=== PATIENT | male | born 2005 | race Caucasian/White ===

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

== ENCOUNTER 2024-05-12 12:22 | Outpatient (AMB) | payer BC, SELFPAY ==
--- NOTE | 2024-05-12 12:24 | MHC.PC.OV ---
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 Intake Note: pt is here for creative services director to est care, came from [facility] Dr[facility] And Reamer Required: No Allergies No Known Allergies Allergy (Verified 05/12/24 12:25) Tobacco use date assessed: 05/12/24 Dental Screening Dental Screen Date: 05/12/24 Did you have a dental visit in the last 12 months?: Yes Did you have a dental problem in the last 6 months where you did not have access to dental care?: No Was dental information given to patient?: Patient has dentist HPI 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 Will order labs. 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 1. Little interest or pleasure in doing things: not at all 2. Feeling down, depressed, or hopeless: not at all 3. Trouble falling or staying asleep, or sleeping too much: several days 4. Feeling tired or having little energy: several days 5. Poor appetite or overeating: not at all 6. Feeling bad about yourself - or that you are a failure or have let yourself or your family down: several days 7. Trouble concentrating on things, such as reading the newspaper or watching television: not at all 8. Moving or speaking so slowly that other people could have noticed. Or the opposite - being so fidgety or restless that you have been moving around a lot more than usual: not at all 9. Thoughts that you would be better off or of hurting yourself in some way: not at all Total score: 3 Depression Screening Interpretation: Negative Depression Screening Done: Yes 02239 - PHQ-9 Billing: Yes Source: Developed by Drs. Frankie Esparaz, Sarah Guzmán, Vincent Farias and colleagues, with an educational torrey from [employer]. Thrive Questionnaire Date Thrive assessed: 05/12/24 I am a: Patient What is your living situation today?: I have a place to live, but I am worried about losing it in the future Within the past 12 months, did the food you bought not last and you didn't have the money to get more?: Never true Within the past 12 months, did you worry whether your food would run out before you got money to buy more?: Sometimes True Do you have trouble paying for medicines?: No Do you have trouble getting transportation to medical appointments?: No Do you have trouble paying your heating and electricity bill?: No Do you have trouble taking care of your child, family member or friend?: No Do you have trouble with day-to-day activities such as bathing, preparing meals, shopping, managing finances, etc.?: No Are you currently unemployed and looking for a job?: Yes Are you interested in more education?: Yes Please select the resources that you would like help with: Utilities and Job search/training Currently or been in a relationship where the following occur: No concerns reported THRIVE Score: 2 AUDIT C Alcohol Use Questionnaire (AUDIT-C) 1. How often do you have a drink containing alcohol?: Monthly or less 2. How many drinks containing alcohol do you have on a typical day when you are drinking?: 1 or 2 3. How often do you have six or more drinks on one occasion?: Never Total Score: 1 Score Reviewed/Action Taken: Yes CIRILO-7 AMB Questionnaire CIRILO-7 Date CIRILO - 7 assessed: 05/12/24 Feeling nervous, anxious, or on edge: 0 = Not at all Not being able to stop or control worryin = Several days Worrying too much about different things: 1 = Several days Trouble relaxin = Not at all Being so restless that it is hard to sit still: 2 = More than half the days Becoming easily annoyed or irritable: 0 = Not at all Feeling afraid as if something awful might happen: 0 = Not at all Total CIRILO-7 score (0-4 normal; 5-9 mild; 10-14 moderate; 15-21 severe): 4 Source: Developed by Drs. Frankie Esparza, Sarah Guzmán, Vincent Farias and colleagues, with an educational torrey from [employer]. CIRILO-7 Assessment Billing CIRILO-7 Assessment Tool: CIRILO-7 Assessment 77944 Review of Systems Const Denies chills and Denies fever(s) Eyes Denies blurry vision ENT Denies vertigo, Denies dizziness and Denies sore throat Card Denies chest pain at rest, Denies chest pain with activity, Denies diaphoresis, Denies dyspnea and Denies dyspnea on exertion Resp Denies cough, Denies dyspnea, Denies dyspnea on exertion and Denies wheezing GI Denies abdominal pain, Denies melena, Denies hematochezia, Denies constipation, Denies diarrhea and Denies loose stools Denies hematuria Musc Denies numbness and Denies tingling Skin/Breast Denies lesions Neuro Denies vertigo, Denies dizziness, Denies numbness and Denies tingling Psych Denies anxiety, Denies depression, Denies homicidal ideation, Denies suicidal ideation and Denies other (substance abuse) Aller/Immun Denies wheezing Physical exam (Primary Care) Vital Signs: Last Vital Signs Pulse 73 05/12/24 12:28 BP 118/70 05/12/24 12:28 Pulse Ox 99 05/12/24 12:28 BMI result Body Mass Index 17.5 Tobacco/Smoking Status: Tobacco use Status Tobacco use date assessed 05/12/24 05/12/24 12:27 Patient Tobacco Use Status Never used Tobacco 05/12/24 12:27 e-Cigarette/Vaping Use Never Used 05/12/24 12:27 PHQ-9: PHQ-9 Score PHQ-9: Total score 3 05/12/24 12:49 Depression Screening Interpretation: Negative Thrive Assessment: Date of Thrive Assessment Date Thrive assessed 05/12/24 05/12/24 12:27 Currently or been in a relationship where the following occur: No concerns reported Const General: cooperative Nutritional Appearance: well nourished Orientation/consciousness: patient oriented x3 HENMT Head: Yes normal to inspection, Yes normocephalic and Yes atraumatic Ears: TM's normal bilaterally Eyes General: appearance normal, both eyes and all related structures Alignment and Position: alignment normal and position normal Neck Neck: Yes normal visual inspection, Yes no lymphadenopathy and Yes supple Resp Effort & Inspection: normal respiratory effort Auscultation: clear to auscultation bilaterally Cardio Rate: regular rate Rhythm: regular rhythm Heart sounds: S1 normal heart sound present, S2 normal heart sound present and no murmurs GI Palpation (GI): Soft to palpation and nontender Auscultation: normal bowel sounds Male General Exam: Yes normal external exam Penis: normal penis Scrotum: scrotum normal, testes descended bilaterally and no inguinal hernias Testes: no testicular mass Skin Rashes: no rashes Neuro General: patient oriented x3, moves all extremities, no focal motor deficits and deep tendon reflexes 2+ bilaterally Romberg Test: Negative Psych Appearance: grossly normal Mental Status: mental status grossly normal Speech and movement: Normal speech and movement present Affect: normal affect Attitude: cooperative Thought process: Normal thought process present Thought content: Normal thought content present Insight: Good insight present (Psych) Judgement: Good judgement present (Psych) Coding Level of Care Code New Pt Prev Care 18-39yr(95489 Diagnoses Physical exam Z00.00 Additional Codes CIRILO-7 Assessment Billing - CIRILO-7 Assessment Tool: CIRILO-7 Assessment 06752 ([id number]) PHQ-9 - 81674 - PHQ-9 Billing: Yes ([id number]) Assessment & Plan Assessment & Plan (1) Physical exam: Code(s): Z00.00 - Encounter for general adult medical examination without abnormal findings Category: Medical Plan: labs ordered Plan The patient agreed to the use of a medical services coordinator for this encounter. Scribed for JAYLEEN Demarco by barron Bryant scribe, on 05/12/2024 at 12:50 EST.
[2024-05-12 12:28] VITALS: BP 118/70; PULSE 73; O2SAT 99; BMI 17.5
== END 2024-05-12 13:01 | disposition home or self-care (01) ==
PROVIDERS: PCP Nurse Practitioner Family; Visit Provider Nurse Practitioner Family
DX: Z00.00 Encounter for general adult medical examination without abnormal findings (principal)

== ENCOUNTER → 2024-05-12 12:22 | Outpatient (BNVA) | payer BC, SELFPAY | PROVIDERS: Visit Provider Nurse Practitioner Family | DX: Z00.00 Encounter for general adult medical examination without abnormal findings (principal) | CPT/HCPCS: 96127 ==

== ENCOUNTER 2025-05-25 08:00 | Outpatient (AMB) | payer OTHER, SELFPAY ==
--- NOTE | 2025-05-25 08:06 | A.OFFPC_ITS ---
Vital Signs 05/25/25 08:07 Weight 174 lb BP 110/62 Blood Pressure Location Lt brachial Position Sitting Pulse 77 Temp 98.4 F Pulse Oximetry (%) 97 Oxygen Delivery Method Room Air Intake Visit Reasons: Annual PE Therapist'S Assistant Required: No Allergies No Known Allergies Allergy (Verified 05/12/24 12:25) Medication List - Last Reconciled 05/25/25 by JAYLEEN Verde No Known Home Meds Tobacco use date assessed: 05/25/25 Dental Screening Dental Screen Date: 05/25/25 Did you have a dental visit in the last 12 months?: No Did you have a dental problem in the last 6 months where you did not have access to dental care?: No Was dental information given to patient?: Patient declined HPI Annual PE HPI Details History of Present Illness The patient is a 19 year old individual presenting for a physical examination. The patient denies chest pain, shortness of breath, abdominal pain, blood in stool, constipation, and diarrhea. Health Maintenance - The patient was encouraged to undergo fasting lab work in the near future. - A follow-up physical examination in on e year was recommended. Social History Review of Systems - Cardiovascular: Denies chest pain. - Respiratory: Denies shortness of breat h. - Gastrointestinal: Denies abdominal tha n, blood in stool, constipation, or diarrhea. - Denies any si or hi Physical Exam General: Cooperative, healthy appearing, comfortable, no acute distress and well developed Orientation: Patient oriented x3 Limitations: No limitations Head: Normal to inspection Ears: Cerumen noted, unable to see TMs initially. After lavage, TMs were easily seen. Nose: Normal external nose present Face and sinus: Normal facial exam Eyes: Appearance normal, both eyes and all related structures Neck: Normal visual inspection and Yes full ROM Respiratory: Normal respiratory effort and able to speak in complete sentences. Clear to auscultation bilaterally Cardiovascular: Regular rate and rhythm. Normal S1 and S2 GI: Normal to inspection. Soft to palpation and nontender : testicles without masses/lesions and no hernias appreciated Skin: No rashes or lesions noted Neuro: Patient oriented x3 Extremities: Normal to inspection Results Plan 1. Cerumen Impaction, Bilateral On examination, the patient was found to have bilateral cerumen impaction, which obscured the tympanic membranes. Lavage was performed, after which the tympanic membranes were easily visualized. 2. Encounter For General Adult Medical E xamination The patient was encouraged to undergo fasting lab work in the near future. A follow-up appointment for an annual physical examination is recommended in one year. Discussion Notes I encouraged the patient to have fasting labs drawn in the near future and to return for a follow-up physical exam in one year. Patient Instructions - Get fasting lab work done in the near future. - Schedule a follow-up visit for a physi wilson exam in one year. 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 [employer] Current occupational exposures/hazards: No Cognitive needs: No Hearing needs: No Vision needs: Yes Questionnaire Thrive Questionnaire Date Thrive assessed: 05/12/24 I am a: Patient What is your living situation today?: I have a place to live, but I am worried about losing it in the future Within the past 12 months, did the food you bought not last and you didn't have the money to get more?: Never true Within the past 12 months, did you worry whether your food would run out before you got money to buy more?: Sometimes True Do you have trouble paying for medicines?: No Do you have trouble getting transportation to medical appointments?: Yes Do you have trouble paying your heating and electricity bill?: No Do you have trouble taking care of your child, family member or friend?: No Do you have trouble with day-to-day activities such as bathing, preparing meals, shopping, managing finances, etc.?: Yes Are you currently unemployed and looking for a job?: Yes Are you interested in more education?: Yes Please select the resources that you would like help with: Food, Transportation, Job search/training and Education Currently or been in a relationship where the following occur: No concerns reported THRIVE Score: 3 AUDIT C Alcohol Use Questionnaire (AUDIT-C) 1. How often do you have a drink containing alcohol?: Monthly or less 2. How many drinks containing alcohol do you have on a typical day when you are drinking?: 1 or 2 3. How often do you have six or more drinks on one occasion?: Never Total Score: 1 CIRILO-7 AMB Questionnaire CIRILO-7 Date CIRILO - 7 assessed: 05/12/24 Feeling nervous, anxious, or on edge: 0 = Not at all Not being able to stop or control worryin = Not at all Worrying too much about different things: 1 = Several days Trouble relaxin = Several days Being so restless that it is hard to sit still: 1 = Several days Becoming easily annoyed or irritable: 1 = Several days Feeling afraid as if something awful might happen: 0 = Not at all Total CIRILO-7 score (0-4 normal; 5-9 mild; 10-14 moderate; 15-21 severe): 4 Source: Developed by Drs. Frankie Esparza, Sarah Guzmán, Vincent Farias and colleagues, with an educational torrey from [employer]. Physical exam (Primary Care) Vital Signs: Last Vital Signs Temp 98.4 F 05/25/25 08:07 Pulse 77 05/25/25 08:07 BP 110/62 05/25/25 08:07 Pulse Ox 97 05/25/25 08:07 Oxygen Delivery Method Room Air 05/25/25 08:07 Tobacco/Smoking Status: Tobacco use Status Tobacco use date assessed 05/25/25 05/25/25 08:10 Patient Tobacco Use Status Never used Tobacco 05/25/25 08:10 e-Cigarette/Vaping Use Never Used 05/25/25 08:10 Thrive Assessment: Date of Thrive Assessment Date Thrive assessed 05/12/24 05/25/25 08:10 Currently or been in a relationship where the following occur: No concerns reported Office Procedures Cerumen Removal From which ear canal was the cerumen removed: bilateral Removal: irrigation Notes: patient tolerated procedure well, no complications and ear canal clear 95212-Lgr Irrigation/Lavage Flu Questionnaire Does the patient have a severe egg allergy?: No Does the patient have severe life threatening allergies?: No Does the patient have a fever or illness today?: No Has the patient ever had Guillain-Philippi Syndrome?: No Has the patient ever had any past reaction to a flu shot?: No Immunizations Fluarix 9826-0862 (PF) 45 mcg (15 mcg x 3)/0.5 mL IM syringe Performing Provider: JAYLEEN Verde Performing Location[place] [facility] [place] [facility] Administered by: Laya Boo MA on 05/25/25 08:54 Dose Route Admin Location Dispensed Lot Number Expiration Date NDC Geographic Area Intelligence Officer 0.5 mL IM Left Deltoid 0.5 mL [id number] 12/28/25 [id number] GLAXRent Here VIS Given Date VIS Provided VIS Publication Date 05/25/25 Single Vaccine 24 Eligibility Eligibility Date Funding Source Not [facility] Eligible 05/25/25 Private Coding Level of Care Code Est Pt Level 3 (28684) Est Pt Prev Care 18-39y(35328) Diagnoses Physical exam Z00.00 Excessive cerumen in both ear canals H61.23 CPT Codes Office Procedure - CPT: 00091-Ewo Irrigation/Lavage ([id number]) Assessment & Plan Assessment & Plan (1) Physical exam: Code(s): Z00.00 - Encounter for general adult medical examination without abnormal findings Category: Medical (2) Excessive cerumen in both ear canals: Code(s): H61.23 - Impacted cerumen, bilateral Category: Medical Plan . Orders: Orders Comprehensive [place]. Panel Fast 1 Year Z00.00 - Encounter for general adult medical examination without abnormal findings UA CC w/rflx Micro + Cult 1 Year Z00.00 - Encounter for general adult medical examination without abnormal findings Lipid Panel 1 Year Z00.00 - Encounter for general adult medical examination without abnormal findings Complete Blood Count Auto Diff 1 Year Z00.00 - Encounter for general adult medical examination without abnormal findings TSH reflex Free T4 1 Year Z00.00 - Encounter for general adult medical examination without abnormal findings Influenza [id number] Immunization Today Z23 - Encounter for immunization
[2025-05-25 08:07] VITALS: BP 110/62; PULSE 77; TEMP 36.9; O2SAT 97
--- OUTSIDE RECORDS SUMMARY | 2025-05-25 08:14 | XMS_ITS | Encounter Summary ---
Author Organization [facility] Address [address] [place] [phone] Phone Care Team Providers Care Differential Tester Name Role Phone Robyn Pratt MD Primary Care Provider [phone] Encounter Details Date Type Department Care Team (Late st Contact Info) Description 02/14/2017 Conversion Encounter [facility] [place] [address] [place] [address] Social History Tobacco Use Types Packs/Day Years Used Date Smoking Tobacco: Never Assessed Sex and Gender Information Value Date Recorded Sex Assigned at Male 03/15/2021 9:54 AM EDT Legal Sex Male 5:00 PM EDT Gender Identity Male 03/15/2021 9:54 AM EDT Sexual Orientation Bisexual 10/19/2022 11 :00 AM EDT documented as of this encounter Plan of Treatment Not on file documented as of this encounter Visit Diagnoses Not on filedocumented in this encounter Care Teams Differential Tester Relationship Specialty Start Date End Date Robyn Pratt MD [address] [place] [address] PCP - General Pediatrics 09/17/22 documented as of this encounter
--- OUTSIDE RECORDS SUMMARY | 2025-05-25 08:14 | XMS_ITS | Encounter Summary ---
Author Organization [facility] Address [address] [place] [phone] Phone Care Team Providers Care Chocolate Finisher Operator Name Role Phone Robyn Pratt MD Primary Care Provider Encounter Details Date Type Department Care Team (Late st Contact Info) Description 09/20/2014 Documentation EM Family Medicine [address] [place] [address] Family Medicine, Physician [address] [place], [place] [phone] Social History Tobacco Use Types Packs/Day Years [...] on filedocumented in this encounter Care Teams Chocolate Finisher Operator Relationship Specialty Start Date End Date Robyn Pratt MD [address] [place] [id number] PCP - General Pediatrics 09/17/22 documented as of this encounter
--- OUTSIDE RECORDS SUMMARY | 2025-05-25 08:14 | XMS_ITS | Encounter Summary ---
Author Organization [facility] Address [address] [place] [phone] Phone Care Team Providers Care Mirror Department Supervisor Name Role Phone Robyn Pratt MD Primary Care Provider [phone] Encounter Details Date Type Department Care Team (Late st Contact Info) Description 09/30/2013 Documentation EM Family Medicine [address] [place] [address] Family Medicine, Physician [address] [place], [place] [phone] Social History Tobacco Use Types Packs/Day Years [...] on filedocumented in this encounter Care Teams Mirror Department Supervisor Relationship Specialty Start Date End Date Robyn Pratt MD [address] [place] [id number] PCP - General Pediatrics 09/17/22 documented as of this encounter
--- OUTSIDE RECORDS SUMMARY | 2025-05-25 08:14 | XMS_ITS | Clinical Summary ---
Author Organization [facility] Address [address] [place] [phone] Phone Care Team Providers Care General Internal Medicine Physician Name Role Phone Robyn Pratt MD Primary Care Provider Allergies No known active allergies Medications Spacer/Aero-Holdi ng Chambers (AeroChamber Plus Yared-Vu) miscIndications:M ild intermittent asthma without complication Ut dict 1 each 3 1 Active Additional Information Patient not taking.Reported on 04/23/2022 albuterol HFA 108 (90 Base) MCG/ACT inhalerIndication s:Mild intermittent asthma without complication Inhale 2 puffs every 4 (four) hours as needed for wheezing or shortness of breath (cough, chest tightness). 1 Units 1 Active Additional Information Patient not taking.Reported on 10/19/2022 Cetirizine HCl (ZYRTEC ALLERGY PO) Take by mouth. Activ e buPROPion XL 300 MG 24 hr tabletIndications :Attention deficit hyperactivity disorder (ADHD), unspecified ADHD type Take 1 tablet (300 mg total) by mouth daily. 30 tablet 2 3 Active Additional Information Patient not taking.Reported on 02/25/2023 guanFACINE HCl ER 3 MG tablet sustained-release 24 hourIndications:A ttention deficit hyperactivity disorder (ADHD), unspecified ADHD type TAKE ONE TABLET BY MOUTH EVERY DAY 30 tablet 2 3 Active Active Problems Problem Noted Date Diagnosed Date Postural dizziness with presyncope 02/25/2023 Assessment & Plan (02/25/2023 5:48 PM EDT): Likely vasovagal presyncope due to lack of food, dehydration, and prolonged standing. Plan: Increase fluid intake and eat regular meals Recommend compression socks during prolonged standing at work Follow up if symptoms reoccur, especially if active during symptoms. Follow up if syncope occurs. BMI (body mass index), pedia tric, less than 5th percentile for age 0903/24/2021 Wears glasses 03/15/2021 Overview (10/19/2022): Sees Opt yearly Assessment & Plan (10/19/2022 11:04 AM EDT): Sees Opt yearly Adolescent idiopathic scoliosis of thoracolumbar region 11/19/2017 Overview (10/18/2022): Seen at [facility] 04/24/21 update x-ray obtained and overall no concern from ortho at this point in time and they do not foresee that there will be at at almost 16 1/2 prominent ribs were felt to be due thin body habitus and they did not note any concern nor need for f/u; There were no significant comment about his hyperflexibility Mild scoliosis, risser 4+ Assessment & Plan (10/19/2022 11:04 AM EDT): Seen at [facility] 04/24/21 Mild scoliosis, risser 4+ No need for follow up Anxiety and depression 03/26/2014 Overview (10/19/2022): Pt and mom would prefer this dx be included on school form Anxiety and depression/ ADHD Since 3rd grade [facility] prescribed until 09/2021: bupropion XL 300 QD 10/19/2022 PHQ9 = 5. would like to return to therapy - needs referral Assessment & Plan (10/19/2022 10:57 AM EDT): Refer back to therapy/Behavioral Health. Continue Bupropion XL 300 mg daily. Assessment & Plan (04/29/2022 10:53 AM EDT): 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 likely local due to financial Buproprion XL 300mg daily CIRILO 2, PHQ9 3; pt feels is maturing and he has a better understanding of himself Assessment & Plan (03/24/2021 7:03 AM EDT): Pt under the care of Marilyn [facility] at [facility], pt has a PHQ9-5 and denies SI on PHQ9 acknowledged SI and plan and does not elaborate on details, pt eludes to clinician that he know what it means to reveal this; he reports that his therapist is aware of SI/Plan and he sees her weekly; Yoel/parents reports that he has Crisis # and support's; pt is on Guanfacine and Buproprion Attention deficit hyperactivity disorder 014 Overview (10/19/2022): 10/03/2021 Marilyn Dodge [employer]URNER [phone] feels Yoel is stable since 2019 & would like PCP to take over med prescriptions on Guaunfacine ER 2mg for ADHD and Wellbutrin XL 150mg-effective for ADHD, mild depression; Past trials Ritalin-weight loss Concerta-hallucinations Straterra-lack of efficacy, some sedation 04/23/2022 Increased to Guanfacine ER 3 mg QD Assessment & Plan (10/19/2022 10:57 AM EDT): Refer to Behavioral Health Continue Guanfacine ER 3 mg QD and bupropion XL 300 QD Recheck in 3 months Assessment & Plan (04/29/2022 10:52 AM EDT): Pt does not feel that the guaunfacine HCL ER 2mg daily in the morning is as effective for focus and feels that he is loosing concentration on task; so dose changed to gaugnfacine ER 3mg daily in the morning; f/u in 1-2 week or sooner if needed; needs v/s and wt; pt also overdue for PE; Message left on voice mail on 04/29/22 to remind pt to pickle sorter new script from pharmacy and encouraged sign up for my chart portal Assessment & Plan (03/26/2021 3:41 PM EDT): On guafacine followed by Renetta-Marilyn Santiago Allergic rhinitis 10/07/2009 Overview (10/19/2022): Doing well on zyrtec Assessment & Plan (10/19/2022 10:45 AM EDT): Continue zyrtec daily Resolved Problems Problem Noted Date Diagnosed Date Resolved Date Palpitations in pediatric patient 05/18/2021 10/19/2022 Overview (05/18/2021): Seen by Dr. 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 Overview (04/26/2021): Ankle 180 rotation; asymmetry of chest/back; knocked knees; refer back to Adriannes- pt seen at [facility] 04/24/21 and no significant comment nor recommendation was made for hypermobility Assessment & Plan (03/26/2021 3:33 PM EDT): Ankle 180 rotation; asymmetry of chest/back; knocked knees; refer back to Adriannes Eczema 10/07/2009 10/19/2022 Mild intermittent asthma without complication 10/08/19 10 10/19/2022 Overview (10/19/2022): Has needed his inhaler in years Assessment & Plan (03/26/2021 3:35 PM EDT): Hx of allergic triad; renewed rx's albuterol, loratadine; encouraged daily use of emollients Immunizations Immunization Administration Dates Next Due COVID-19 Pfizer, bivalent, 12+ years 10/19/2022 COVID-19 Pfizer, monovalent, 12+ years 2,08/14/2021 DTaP 5 12/02/2008, 6,05/18/2005,03/22,01/18/2005 H1N1 08/25/2009 HPV Vaccine 9 Valent 11/19/2017,10/02/2016 Hep A, ped/adol 09/28/2015,08/31/2014 Hep B, ped/adol 05/30/2005,03/30/2005,2004 Hib (PRP-T) 04/30/2006, 5,03/30/2005,01/28 IPV 12/28/2008, 5,03/30/2005,01/28 Influenza Split 04/05/2011 Influenza, injectable, MDCK, preservative free, quadrivalent 08/08/2018 Influenza, injectable, quadrivalent 05/01/2016,1 ,08/31/2014 Influenza, injectable, quadr ivalent, preservative free 10/19/2022,03/15/2021,06/19/2020,08/28,04/09/2017,07/27/2013 Influenza, injectable, trivalent 04/01/2009,04/02,05/30/2005 MMR 12/28/2008,01/28/2006 Meningococcal B Trumenba 10/19/2022 Meningococcal Conj (Menactra) MCV4P 03/15/2021,0 10/02/2016 Pneumococcal Conjugate 01/04/2006,2004,03/30/2005,01/28 Tdap 10/02/2016 Varicella 12/28/2008,01/28/2006 Family History Medical History Relation Name Comments No Known Problems Brother tulio ryan Depression Father sebas ryan jr Schizophrenia Father sebas ryan jr Liver disease Maternal Grandfather Pancreatic cancer Maternal Grandfather Breast cancer Maternal Grandmother Anxiety disorder Mother darriusmarky brookechristina Relation Name Status Comments Brother tulio ryan Alive Brother: Asth ma Father sebas ryan jr Alive Father: P TSD, Schizophrenia Maternal Grandfather Materna l grandfather: Diabetes mellitus, kidney problems, tumors ( cancer ) Maternal Grandmother breast cancer Mother darrius hameed Alive Mother: Asthma / migraines Other Family history of Obesity, Family history of Hyperlipidemia, Family history of Diabetes mellitus, Family history of Migraines, Family history of Deafness Paternal Grandfather Paterna l grandfather: Sudden /[place] under age 55 Social History Tobacco Use Types Packs/Day Years Used Date Smoking Tobacco: Never Assessed Hunger/Food Answer Date Recorded In the last 12 months, did y ou or your family ever eat less than you felt you should because there wasn't enough money for food? No 10/19/2022 Stable Housing Answer Date Recorded Are you worried that in the next 2 months you may not have stable housing? No 10/19/2022 Transportation Concerns Answer Date Rec orded In the last 12 months, have you or your family ever had to go without healthcare because you didn't have a way to get there? No 10/19/2022 Hazards in Home Answer Date Recorded Think about the place you li ve. Do you have problems with any of the following? Pests (mice or roaches), mold, no/not working smoke detectors, water leaks, no window guards. No 2022 Financing Utilities Answer Date Recorde d In the last 12 months, has t he electric, gas, oil, or water company threatened to shut off your services in your home? No 10/19/2022 Safety at Home Answer Date Recorded Are you or your family worried about feeling saf e in your home? No 10/19/2022 Outside Support Answer Date Recorded Do you feel that you need mo re support from other people or programs to help you care for yourself or your family? No 10/19/2022 Understanding Health Concerns Answer Da te Recorded Do you need help understandi ng your or your child's healthcare needs (diagnosis, medications, plan, etc.)? No 10/19/2022 Financing Health Concerns Answer Date R ecorded In the last 12 months, was t here a time when your child needed to see a doctor or get medications or supplies but could not because of cost? No 10/19/2022 Missing School or Work Answer Date Pete rded Did you or your child miss s chool or work because of a health problem that could have been avoided? No 10/19/2022 Sex and Gender Information Value Date Recorded Sex Assigned at Male 03/15/2021 9:54 AM EDT Legal Sex Male 5:00 PM EDT Gender Identity Male 03/15/2021 9:54 AM EDT Sexual Orientation Bisexual 10/19/2022 11 :00 AM EDT Last Filed Vital Signs Vital Sign Reading Time Taken Comments Blood Pressure 102/66 02/25/2023 4:37 PM EDT Pulse 76 02/25/2023 4:37 PM EDT Temperature 36.3 C (97.3 F) 02/25/2023 4:37 PM EDT Respiratory Rate - - Oxygen Saturation 94% 08/04/2010 12:00 AM EST Inhaled Oxygen Concentration - - Weight 65 kg (143 lb 6.4 oz) 02/25/2023 4:37 PM EDT Height 182.9 cm (6') 10/19/2022 10:06 AM EDT Body Mass Index - - Plan of Treatment Health Maintenance Due Date Last Done Comments Men B Vaccine (2 of 2 - Trum enba SCDM 2-dose series) 04/20/2023 10/19/2022 Influenza Vaccines (#1) 2025 10/20/19, 03/15/2021, 06/19/2020, Additional history exists COVID-19 Vaccine (3 - 2024-2 6 season) 2025 10/19/2022, 08/28/2021, 08/14/2021 DTaP,Tdap,and Td Vaccines (7 - Td or Tdap) 10/02/2026 10/02/2016, 12/02/2008, 04/18/2006, Additional history exists Hepatitis B Vaccines Completed 05/30/2005, 03/30/2005, 2004 Pneumococcal Vaccine Completed 01/04/2006, 05/30/2005, 03/30/2005, Additional history exists HIB Vaccines Completed 04/30/2006, 05/03, 03/30/2005, Additional history exists IPV Vaccines Completed 12/28/2008, 05/03, 03/30/2005, Additional history exists MMR Vaccines Completed 12/28/2008, 01/28/2006 Varicella Vaccines Completed 12/28/2008, 01/28/2006 Hepatitis A Vaccines Completed 09/28/2015, 09/01/19 15 HPV Vaccines Completed 11/19/2017, 10/02/2016 Meningococcal Vaccine Completed 03/15/2021, 017 Insurance [employer]BS BLUE CARD OUT OF STATE Care Teams General Internal Medicine Physician Relationship Specialty Start Date End Date Robyn Pratt MD [address] [place] [id number] PCP - General Pediatrics 09/17/22
== END 2025-05-25 14:30 | disposition home or self-care (01) ==
LOC: HO.HMCC 08:02
PROVIDERS: Visit Provider Nurse Practitioner Family
DX: Z00.00 Encounter for general adult medical examination without abnormal findings (principal); H61.23 Impacted cerumen, bilateral; Z23 Encounter for immunization

== ENCOUNTER → 2025-05-25 08:00 | Outpatient (BNVA) | payer OTHER, SELFPAY | PROVIDERS: Visit Provider Nurse Practitioner Family | DX: Z00.00 Encounter for general adult medical examination without abnormal findings (principal); H61.23 Impacted cerumen, bilateral; Z23 Encounter for immunization | CPT/HCPCS: 69209; 90471; 90656 ==